=== PATIENT | female | born 1950 | race Two or more races ===

== ENCOUNTER 2021-03-31 12:15 | Inpatient (IN) | payer OTHER, MEDICAID ==
[~2021-03-31] VITALS: Ht 162.6 cm; Wt 73.6 kg
[2021-03-31] MEDS ORDERED: DexAMETHasone SOD PHOS 10MG/1ML VIAL INJ IV ONE (16:15)
[2021-03-31] MEDS ORDERED: AZITHROMYCIN 500MG/ 250ML 250 ML IV ONE (16:15)
[2021-03-31] MEDS ORDERED: cefTRIAXone 1GM/50ML D5W 50 ML IV ONE (16:15)
[2021-03-31] MEDS ORDERED: SODIUM CHLORIDE 0.9% 1,000 ML IV ONE (16:45)
[2021-03-31] MEDS ORDERED: DOCUSATE SOD 100 MG CAP PO PRN (16:45)
[2021-03-31] MEDS ORDERED: ACETAMINOPHEN 500 MG TAB PO PRN (16:45)
[2021-03-31] MEDS ORDERED: MORPHINE SULFATE INJECTION 2 MG/ML SYRG IV PRN ×2 (16:45)
[2021-03-31] MEDS ORDERED: SODIUM CHLORIDE 0.9% 1,000 ML IV SCH (16:45)
[2021-03-31] MEDS ORDERED: DEXTROSE (50%) 50ML SYRG IV PRN (16:45)
[2021-03-31] MEDS ORDERED: ACETAMINOPHEN 325 MG TAB PO PRN (16:45)
[2021-03-31] MEDS ORDERED: LORazepam 0.5 MG TAB PO PRN (16:45)
[2021-03-31] MEDS ORDERED: REMDESIVIR PER PHARMACY 0 ML IV SCH ×2 (16:45)
[2021-03-31] MEDS ORDERED: HYDROcodone-ACET 5/325MG TAB PO PRN (16:45)
[2021-03-31] MEDS ORDERED: ALBUTEROL SULF HFA 90MCG INH 200DOSE IN PRN (16:45)
[2021-03-31] MEDS ORDERED: ONDANSETRON HCL 4 MG/2 ML VIAL IV PRN (16:45)
[2021-03-31] MEDS ORDERED: NITROGLYCERIN 0.4 MG SL TAB SL PRN (16:45)
[2021-03-31] MEDS ORDERED: hydrALAZINE HCL 20 MG/ML VL IV PRN (17:15)
[2021-03-31] MEDS: ACCU-CHEK COMFORT CURVE STRIP VI SCH (18:00)
[2021-03-31] MEDS: ALBUTEROL SULF HFA 90MCG INH 200DOSE IN PRN (18:48)
[2021-03-31] MEDS: BUDESONIDE (INHALATION) 180 MCG IH IN SCH (18:48)
[2021-03-31] MEDS: HEPARIN SODIUM (PORCINE) 5000 UNITS/ML 1ML VIAL SC SCH (19:15)
[2021-03-31] MEDS: InsuLIN REG 1unit/0.01ml Soln (100units/ml) SC SCH (19:16)
[2021-03-31] MEDS: INSULIN LANTUS (GLARGINE) 1 /0.01ml (100units/ml) SC SCH (19:17)
[2021-03-31] MEDS: FAMOTIDINE 20 MG TAB PO SCH (22:45)
[2021-03-31 23:22] LABS: Basophils # (auto) 0 10 ^3/uL (0-0.2); Basophils % (auto) 0.1 % (0.0-2.0); Eosinophils # (auto) 0 10 ^3/uL (0-0.8); Hemoglobin 13.4 g/dL (12.2-16.2); Lymphocytes # (auto) 0.4 10 ^3/uL (0.4-5.4); Lymphocytes % (auto) 5.3 % (10.0-50.0); Mean Corpuscular Hemoglobin 29.1 pg (28.0-32.0); Mean Corpuscular Hgb Conc. 32.7 g/dL (32.0-36.0); Mean Corpuscular Volume 88.9 fL (80.0-100.0); Monocytes # (auto) 0.2 10 ^3/uL (0-1.3); Monocytes % (auto) 3.2 % (0.0-12.0); Neutrophils # (auto) 6.7 10 ^3/uL (1.6-8.6); Neutrophils % (auto) 91.4 % (37.0-80.0); Red Blood Cells 4.61 10^6/uL (4.0-5.20); Red Cell Distribution Width 13.7 % (11.8-14.3); White Blood Cell 7.3 10^3/uL (4.4-10.8)
[2021-03-31 23:35] LABS: Urine Bacteria NONE SEEN /hpf (None Seen); Urine Blood Negative /uL (Negative); Urine Specific Gravity 1.029 (1.001-1.035); Urine WBC <1 /hpf (0 - 5)
[2021-03-31 23:44] LABS: Potassium 3.6 mmol/L (3.5-5.1)
[2021-03-31 23:51] LABS: Thyroid Stimulating Hormone 0.62 uIU/mL (0.358-3.74)
[2021-04-01 00:06] LABS: Albumin 2.3 g/dL (3.4-5.0); BUN/Creatinine Ratio 32.5; Bilirubin, Total 0.2 mg/dL (0.2-1.0); Calcium 8.5 mg/dL (8.5-10.1); Total Protein 6.5 g/dL (6.4-8.2)
[2021-04-01] MEDS: ACCU-CHEK COMFORT CURVE STRIP VI SCH ×4 (00:16→18:00)
[2021-04-01] MEDS: InsuLIN REG 1unit/0.01ml Soln (100units/ml) SC SCH ×4 (00:23→19:25)
[2021-04-01] MEDS: HEPARIN SODIUM (PORCINE) 5000 UNITS/ML 1ML VIAL SC SCH (05:38)
[2021-04-01 07:12] LABS: Basophils # (auto) 0 10 ^3/uL (0-0.2); Basophils % (auto) 0.1 % (0.0-2.0); Eosinophils # (auto) 0 10 ^3/uL (0-0.8); Hematocrit 41.2 % (36.0-46.0); Hemoglobin 13.4 g/dL (12.2-16.2); Lymphocytes # (auto) 0.6 10 ^3/uL (0.4-5.4); Lymphocytes % (auto) 9.7 % (10.0-50.0); Mean Corpuscular Hemoglobin 28.7 pg (28.0-32.0); Mean Corpuscular Hgb Conc. 32.4 g/dL (32.0-36.0); Mean Corpuscular Volume 88.5 fL (80.0-100.0); Monocytes # (auto) 0.3 10 ^3/uL (0-1.3); Monocytes % (auto) 5.4 % (0.0-12.0); Neutrophils # (auto) 4.9 10 ^3/uL (1.6-8.6); Neutrophils % (auto) 84.8 % (37.0-80.0); Nucleated Red Blood Cells % 0.1 %; Red Blood Cells 4.66 10^6/uL (4.0-5.20); Red Cell Distribution Width 13.9 % (11.8-14.3); White Blood Cell 5.8 10^3/uL (4.4-10.8)
[2021-04-01 07:16] LABS: Potassium 3.9 mmol/L (3.5-5.1)
[2021-04-01 07:22] LABS: Albumin 2.3 g/dL (3.4-5.0); BUN/Creatinine Ratio 37.3; Bilirubin, Total 0.2 mg/dL (0.2-1.0); Calcium 8.3 mg/dL (8.5-10.1); Total Protein 5.7 g/dL (6.4-8.2)
[2021-04-01] MEDS: INSULIN LANTUS (GLARGINE) 1 /0.01ml (100units/ml) SC SCH ×2 (08:02→22:44)
[2021-04-01] MEDS: amLODIPine BESYLATE 5 MG TAB PO SCH (10:00)
[2021-04-01] MEDS: ASCORBIC ACID 1,000 MG TAB PO SCH (10:00)
[2021-04-01] MEDS: FAMOTIDINE 20 MG TAB PO SCH ×2 (10:00→23:09)
[2021-04-01] MEDS: ZINC SULFATE 220mg CAP or TAB PO SCH (10:00)
[2021-04-01] MEDS: CHOLECALCIFEROL (VITD3) 2,000 UNIT CAP/TAB PO SCH (10:00)
[2021-04-01] MEDS: DexAMETHasone SOD PHOS 10MG/1ML VIAL INJ IV SCH (10:00)
[2021-04-01] MEDS ORDERED: REMDESIVIR 200 MG in NS 210ml LOADING DOSE ADULT IV ONE (10:30)
[2021-04-01] MEDS ORDERED: NITROGLYCERIN 0.4 MG SL TAB SL PRN (10:45)
[2021-04-01] MEDS: ASPirin 81 mg TAB PO SCH (10:45)
[2021-04-01] MEDS ORDERED: MORPHINE SULFATE INJECTION 2 MG/ML SYRG IV PRN (10:45)
[2021-04-01] MEDS ORDERED: HEPARIN SODIUM (PORCINE) 5000 UNITS/ML 1ML VIAL IV ONE (12:30)
[2021-04-01 13:40] LABS: Basophils # (auto) 0 10 ^3/uL (0-0.2); Basophils % (auto) 0.1 % (0.0-2.0); Eosinophils # (auto) 0 10 ^3/uL (0-0.8); Hematocrit 40.5 % (36.0-46.0); Hemoglobin 13.3 g/dL (12.2-16.2); Lymphocytes # (auto) 0.6 10 ^3/uL (0.4-5.4); Mean Corpuscular Hemoglobin 29.1 pg (28.0-32.0); Mean Corpuscular Hgb Conc. 32.8 g/dL (32.0-36.0); Mean Corpuscular Volume 88.7 fL (80.0-100.0); Monocytes # (auto) 0.5 10 ^3/uL (0-1.3); Monocytes % (auto) 3.8 % (0.0-12.0); Neutrophils # (auto) 11.2 10 ^3/uL (1.6-8.6); Neutrophils % (auto) 91.1 % (37.0-80.0); Red Blood Cells 4.57 10^6/uL (4.0-5.20); White Blood Cell 12.3 10^3/uL (4.4-10.8)
[2021-04-01 13:47] LABS: INR 0.96 (0.9-1.15); Partial Thromboplastin Time 28.2 sec (23.6-33.0)
[2021-04-01] MEDS: HEPARIN DRIP/D5W 100UNITS/ML 250 ML IV SCH (14:21)
[2021-04-01] MEDS: BUDESONIDE (INHALATION) 180 MCG IH IN SCH (15:49)
[2021-04-01] MEDS: ALBUTEROL SULF HFA 90MCG INH 200DOSE IN PRN (15:50)
[2021-04-01] MEDS ORDERED: ROCURONIUM 10MG/ML 10ML VIAL IV ONE (18:00)
[2021-04-01] MEDS ORDERED: ETOMIDATE (2MG/ML) 20ML VIAL IV ONE (18:00)
[2021-04-01] MEDS: MIDAZOLAM DRIP 50 mg/50mL 50 ML IV SCH (18:19)
[2021-04-01] MEDS: fentaNYL Drip 2500mCg/250mlNS 250 ML IV SCH (18:20)
[2021-04-01 18:30] VITALS: BP 145/73
[2021-04-01 20:54] LABS: INR 1.02 (0.9-1.15)
[2021-04-01 21:05] LABS: Partial Thromboplastin Time 119.6 sec (23.6-33.0)
[2021-04-01] MEDS ORDERED: ENOXAPARIN SOD 80 MG/0.8ML SYRINGE SC SCH (22:00)
[2021-04-01] MEDS: cefTRIAXone 1GM/50ML D5W 50 ML IV SCH ×2 (22:37→23:21)
[2021-04-01] MEDS: AZITHROMYCIN 500MG/ 250ML 250 ML IV SCH (23:00)
[2021-04-01] MEDS: CARVEDILOL 3.125 MG TAB PO SCH (23:04)
[2021-04-01] MEDS: ATORVASTATIN 20 MG TAB PO SCH (23:09)
[2021-04-02] MEDS: ACCU-CHEK COMFORT CURVE STRIP VI SCH ×4 (01:34→18:59)
[2021-04-02] MEDS: InsuLIN REG 1unit/0.01ml Soln (100units/ml) SC SCH ×4 (01:40→19:00)
[2021-04-02 02:40] VITALS: BP 126/54
[2021-04-02 06:06] LABS: INR 1.04 (0.9-1.15); Partial Thromboplastin Time 55.5 sec (23.6-33.0)
[2021-04-02 07:29] VITALS: BP 129/56
[2021-04-02 07:40] LABS: Alanine Aminotransferase 25 U/L (13-56)
[2021-04-02 07:45] LABS: Anion Gap 96 (5-15); Carbon Dioxide 28 mmol/L (21-32); Chloride 17 mmol/L (98-107); Potassium 3.7 mmol/L (3.5-5.1); Sodium 141 mmol/L (136-145)
[2021-04-02 07:46] LABS: Albumin 1.9 g/dL (3.4-5.0); Alkaline Phosphatase 108 U/L (45-117); Aspartate Aminotransferase 63 U/L (15-37); Bilirubin, Total 0.3 mg/dL (0.2-1.0); Blood Urea Nitrogen 29 mg/dL (7-18); Calcium 7.9 mg/dL (8.5-10.1); GFR African American 133 mL/min; GFR Non-African American 110 mL/min; Glucose 260 mg/dL (74-106); Total Protein 5.9 g/dL (6.4-8.2)
[2021-04-02] MEDS: CARVEDILOL 3.125 MG TAB PO SCH ×2 (10:43→22:00)
[2021-04-02] MEDS: amLODIPine BESYLATE 5 MG TAB PO SCH (10:44)
[2021-04-02] MEDS: ZINC SULFATE 220mg CAP or TAB PO SCH (10:55)
[2021-04-02] MEDS: ASCORBIC ACID 1,000 MG TAB PO SCH (10:55)
[2021-04-02] MEDS: CHOLECALCIFEROL (VITD3) 2,000 UNIT CAP/TAB PO SCH (10:55)
[2021-04-02] MEDS: ASPirin 81 mg TAB PO SCH (10:55)
[2021-04-02] MEDS: DexAMETHasone SOD PHOS 10MG/1ML VIAL INJ IV SCH (10:55)
[2021-04-02] MEDS: FAMOTIDINE 20 MG TAB PO SCH ×2 (10:55→22:30)
[2021-04-02] MEDS: INSULIN LANTUS (GLARGINE) 1 /0.01ml (100units/ml) SC SCH ×2 (10:57→22:30)
[2021-04-02 11:05] VITALS: BP 130/56
[2021-04-02 13:38] LABS: INR 1.05 (0.9-1.15); Partial Thromboplastin Time 56.4 sec (23.6-33.0)
[2021-04-02 13:41] VITALS: BP 138/56
[2021-04-02] MEDS: HEPARIN DRIP/D5W 100UNITS/ML 250 ML IV SCH (13:53)
[2021-04-02] MEDS: REMDESIVIR 100mg 100 MG in SODIUM CHL 0.9% 230 ML IV SCH (16:15)
[2021-04-02 18:11] VITALS: BP 141/57
[2021-04-02] MEDS: fentaNYL Drip 2500mCg/250mlNS 250 ML IV SCH (18:50)
[2021-04-02] MEDS: MIDAZOLAM DRIP 50 mg/50mL 50 ML IV SCH (18:52)
[2021-04-02 19:45] LABS: INR 1.1 (0.9-1.15); Partial Thromboplastin Time 66.9 sec (23.6-33.0)
[2021-04-02 22:22] VITALS: BP 142/59
[2021-04-02] MEDS: ATORVASTATIN 20 MG TAB PO SCH (22:30)
[2021-04-02] MEDS: AZITHROMYCIN 500MG/ 250ML 250 ML IV SCH (22:30)
[2021-04-03] MEDS ORDERED: InsuLIN REG 1unit/0.01ml Soln (100units/ml) ONE (01:31)
[2021-04-03 02:35] VITALS: BP 139/59
[2021-04-03] MEDS: ACCU-CHEK COMFORT CURVE STRIP VI SCH ×4 (05:50→17:43)
[2021-04-03] MEDS: InsuLIN REG 1unit/0.01ml Soln (100units/ml) SC SCH ×4 (05:56→17:43)
[2021-04-03 06:30] VITALS: BP 135/60
[2021-04-03] MEDS: INSULIN LANTUS (GLARGINE) 1 /0.01ml (100units/ml) SC SCH ×2 (07:12→22:42)
[2021-04-03 08:19] LABS: Basophils # (auto) 0 10 ^3/uL (0-0.2); Basophils % (auto) 0.5 % (0.0-2.0); Eosinophils # (auto) 0 10 ^3/uL (0-0.8); Eosinophils % (auto) 0.2 % (0.0-7.0); Hematocrit 40.2 % (36.0-46.0); Hemoglobin 13.5 g/dL (12.2-16.2); Lymphocytes # (auto) 0.6 10 ^3/uL (0.4-5.4); Lymphocytes % (auto) 5.5 % (10.0-50.0); Mean Corpuscular Hemoglobin 29.3 pg (28.0-32.0); Mean Corpuscular Hgb Conc. 33.5 g/dL (32.0-36.0); Mean Corpuscular Volume 87.6 fL (80.0-100.0); Monocytes # (auto) 0.5 10 ^3/uL (0-1.3); Monocytes % (auto) 4.4 % (0.0-12.0); Neutrophils # (auto) 9.1 10 ^3/uL (1.6-8.6); Neutrophils % (auto) 89.4 % (37.0-80.0); Nucleated Red Blood Cells % 0.1 %; Red Blood Cells 4.59 10^6/uL (4.0-5.20); White Blood Cell 10.2 10^3/uL (4.4-10.8)
[2021-04-03 08:45] LABS: Albumin 1.9 g/dL (3.4-5.0); Calcium 7.9 mg/dL (8.5-10.1); Magnesium 3.1 mg/dL (1.6-2.6); Potassium 3.5 mmol/L (3.5-5.1)
[2021-04-03 08:49] LABS: BUN/Creatinine Ratio 44.7; Bilirubin, Total 0.3 mg/dL (0.2-1.0); Total Protein 5.6 g/dL (6.4-8.2)
[2021-04-03] MEDS: CARVEDILOL 3.125 MG TAB PO SCH ×2 (10:00→22:00)
[2021-04-03] MEDS: ASPirin 81 mg TAB PO SCH (10:33)
[2021-04-03] MEDS: ZINC SULFATE 220mg CAP or TAB PO SCH (10:33)
[2021-04-03] MEDS: DexAMETHasone SOD PHOS 10MG/1ML VIAL INJ IV SCH (10:33)
[2021-04-03] MEDS: ASCORBIC ACID 1,000 MG TAB PO SCH (10:34)
[2021-04-03] MEDS: CLOPIDOGREL BISULFATE 75 MG TAB PO SCH (10:34)
[2021-04-03] MEDS: amLODIPine BESYLATE 5 MG TAB PO SCH (10:34)
[2021-04-03] MEDS: FAMOTIDINE 20 MG TAB PO SCH ×2 (10:34→22:45)
[2021-04-03] MEDS: CHOLECALCIFEROL (VITD3) 2,000 UNIT CAP/TAB PO SCH (10:34)
[2021-04-03 10:35] VITALS: BP 141/59
[2021-04-03 10:58] LABS: INR 1.16 (0.9-1.15); Partial Thromboplastin Time 69.9 sec (23.6-33.0)
[2021-04-03] MEDS: HEPARIN DRIP/D5W 100UNITS/ML 250 ML IV SCH (12:46)
[2021-04-03 13:00] VITALS: BP 141/59
[2021-04-03] MEDS: REMDESIVIR 100mg 100 MG in SODIUM CHL 0.9% 230 ML IV SCH (15:11)
[2021-04-03 19:06] VITALS: BP 135/60
[2021-04-03] MEDS: MIDAZOLAM DRIP 50 mg/50mL 50 ML IV SCH (19:13)
[2021-04-03] MEDS: fentaNYL Drip 2500mCg/250mlNS 250 ML IV SCH (19:20)
[2021-04-03 21:07] LABS: INR 1.21 (0.9-1.15)
[2021-04-03] MEDS: cefTRIAXone 1GM/50ML D5W 50 ML IV SCH (21:15)
[2021-04-03 21:23] LABS: Partial Thromboplastin Time 88.7 sec (23.6-33.0)
[2021-04-03 21:27] VITALS: BP 143/59
[2021-04-03] MEDS: AZITHROMYCIN 500MG/ 250ML 250 ML IV SCH (22:30)
[2021-04-03] MEDS: ATORVASTATIN 20 MG TAB PO SCH (22:47)
[2021-04-04] VITALS (11 sets, daily range): BP systolic 119–149; BP diastolic 53–65
[2021-04-04] MEDS: ACCU-CHEK COMFORT CURVE STRIP VI SCH ×5 (00:22→23:57)
[2021-04-04] MEDS: InsuLIN REG 1unit/0.01ml Soln (100units/ml) SC SCH ×4 (00:35→18:03)
[2021-04-04] MEDS: INSULIN LANTUS (GLARGINE) 1 /0.01ml (100units/ml) SC SCH ×2 (07:29→22:21)
[2021-04-04 09:18] LABS: INR 1.17 (0.9-1.15); Partial Thromboplastin Time 43.9 sec (23.6-33.0)
[2021-04-04 09:31] LABS: Basophils # (auto) 0.1 10 ^3/uL (0-0.2); Basophils % (auto) 0.8 % (0.0-2.0); Eosinophils # (auto) 0.1 10 ^3/uL (0-0.8); Eosinophils % (auto) 0.4 % (0.0-7.0); Hematocrit 43.6 % (36.0-46.0); Hemoglobin 14.6 g/dL (12.2-16.2); Lymphocytes # (auto) 0.7 10 ^3/uL (0.4-5.4); Lymphocytes % (auto) 5.2 % (10.0-50.0); Mean Corpuscular Hemoglobin 29.4 pg (28.0-32.0); Mean Corpuscular Hgb Conc. 33.4 g/dL (32.0-36.0); Mean Corpuscular Volume 87.9 fL (80.0-100.0); Monocytes # (auto) 0.8 10 ^3/uL (0-1.3); Monocytes % (auto) 6.2 % (0.0-12.0); Neutrophils # (auto) 11.8 10 ^3/uL (1.6-8.6); Neutrophils % (auto) 87.4 % (37.0-80.0); Nucleated Red Blood Cells % 0.1 %; Red Blood Cells 4.96 10^6/uL (4.0-5.20); Red Cell Distribution Width 14.1 % (11.8-14.3); White Blood Cell 13.5 10^3/uL (4.4-10.8)
[2021-04-04 09:50] LABS: Calcium 7.7 mg/dL (8.5-10.1); Potassium 4.4 mmol/L (3.5-5.1)
[2021-04-04] MEDS: DexAMETHasone SOD PHOS 10MG/1ML VIAL INJ IV SCH (09:57)
[2021-04-04] MEDS: CHOLECALCIFEROL (VITD3) 2,000 UNIT CAP/TAB PO SCH (09:58)
[2021-04-04] MEDS: CLOPIDOGREL BISULFATE 75 MG TAB PO SCH (09:58)
[2021-04-04] MEDS: ASCORBIC ACID 1,000 MG TAB PO SCH (09:58)
[2021-04-04] MEDS: FAMOTIDINE 20 MG TAB PO SCH ×2 (09:58→22:05)
[2021-04-04] MEDS: amLODIPine BESYLATE 5 MG TAB PO SCH (09:58)
[2021-04-04] MEDS: ZINC SULFATE 220mg CAP or TAB PO SCH (09:58)
[2021-04-04] MEDS: ASPirin 81 mg TAB PO SCH (09:58)
[2021-04-04 09:59] LABS: BUN/Creatinine Ratio 38.6; Bilirubin, Total 0.4 mg/dL (0.2-1.0); CRP High Sensitivity 2.44 mg/dL (< 0.3); Total Protein 5.4 g/dL (6.4-8.2)
[2021-04-04] MEDS: CARVEDILOL 3.125 MG TAB PO SCH ×2 (10:00→22:08)
[2021-04-04] MEDS: HEPARIN DRIP/D5W 100UNITS/ML 250 ML IV SCH (12:40)
[2021-04-04] MEDS: REMDESIVIR 100mg 100 MG in SODIUM CHL 0.9% 230 ML IV SCH (14:47)
[2021-04-04 15:02] LABS: INR 1.21 (0.9-1.15); Partial Thromboplastin Time 49.8 sec (23.6-33.0)
[2021-04-04] MEDS: fentaNYL Drip 2500mCg/250mlNS 250 ML IV SCH (18:06)
[2021-04-04] MEDS: MIDAZOLAM DRIP 50 mg/50mL 50 ML IV SCH (18:07)
[2021-04-04 21:03] LABS: INR 1.23 (0.9-1.15); Partial Thromboplastin Time 40.8 sec (23.6-33.0)
[2021-04-04] MEDS: cefTRIAXone 1GM/50ML D5W 50 ML IV SCH (21:29)
[2021-04-04] MEDS: AZITHROMYCIN 500MG/ 250ML 250 ML IV SCH (22:09)
[2021-04-04] MEDS ORDERED: HEPARIN DRIP/D5W 100UNITS/ML 250 ML IV SCH (22:15)
[2021-04-04] MEDS: ATORVASTATIN 20 MG TAB PO SCH (22:23)
[2021-04-05] VITALS (9 sets, daily range): BP systolic 109–130; BP diastolic 44–62
[2021-04-05] MEDS: InsuLIN REG 1unit/0.01ml Soln (100units/ml) SC SCH ×4 (00:01→18:01)
[2021-04-05] MEDS: ACCU-CHEK COMFORT CURVE STRIP VI SCH ×3 (05:49→18:00)
[2021-04-05] MEDS: INSULIN LANTUS (GLARGINE) 1 /0.01ml (100units/ml) SC SCH ×2 (06:57→22:00)
[2021-04-05 09:11] LABS: INR 1.38 (0.9-1.15)
[2021-04-05 09:25] LABS: Partial Thromboplastin Time 109.6 sec (23.6-33.0)
[2021-04-05] MEDS: DexAMETHasone SOD PHOS 10MG/1ML VIAL INJ IV SCH (10:00)
[2021-04-05] MEDS: amLODIPine BESYLATE 5 MG TAB PO SCH (10:00)
[2021-04-05] MEDS: CLOPIDOGREL BISULFATE 75 MG TAB PO SCH (10:00)
[2021-04-05] MEDS: CARVEDILOL 3.125 MG TAB PO SCH ×2 (10:00→22:00)
[2021-04-05] MEDS: ZINC SULFATE 220mg CAP or TAB PO SCH (10:52)
[2021-04-05] MEDS: ASPirin 81 mg TAB PO SCH (10:52)
[2021-04-05] MEDS: ASCORBIC ACID 1,000 MG TAB PO SCH (10:53)
[2021-04-05] MEDS: CHOLECALCIFEROL (VITD3) 2,000 UNIT CAP/TAB PO SCH (10:53)
[2021-04-05] MEDS: FAMOTIDINE 20 MG TAB PO SCH ×2 (10:53→22:00)
[2021-04-05 12:05] LABS: INR 1.25 (0.9-1.15); Partial Thromboplastin Time 53.7 sec (23.6-33.0)
[2021-04-05 12:23] LABS: Potassium 3.6 mmol/L (3.5-5.1)
[2021-04-05 12:32] LABS: Albumin 1.7 g/dL (3.4-5.0); BUN/Creatinine Ratio 35.6; Bilirubin, Total 0.2 mg/dL (0.2-1.0); Calcium 7.1 mg/dL (8.5-10.1)
[2021-04-05] MEDS: REMDESIVIR 100mg 100 MG in SODIUM CHL 0.9% 230 ML IV SCH (15:06)
[2021-04-05] MEDS: fentaNYL Drip 2500mCg/250mlNS 250 ML IV SCH (17:46)
[2021-04-05] MEDS: MIDAZOLAM DRIP 50 mg/50mL 50 ML IV SCH (17:47)
[2021-04-05] MEDS: cefTRIAXone 1GM/50ML D5W 50 ML IV SCH (21:16)
[2021-04-05] MEDS: ATORVASTATIN 20 MG TAB PO SCH (22:00)
[2021-04-05] MEDS: AZITHROMYCIN 500MG/ 250ML 250 ML IV SCH (22:00)
[2021-04-05] MEDS ORDERED: FAMOTIDINE 20 MG TAB ONE (23:54)
[2021-04-05] MEDS ORDERED: AZITHROMYCIN 500MG/ 250ML 250 ML IV ONE (23:54)
[2021-04-05] MEDS ORDERED: ATORVASTATIN 20 MG TAB ONE (23:54)
[2021-04-05] MEDS ORDERED: INSULIN LANTUS (GLARGINE) 1 /0.01ml (100units/ml) SC ONE (23:56)
[2021-04-06] VITALS (8 sets, daily range): BP systolic 123–140; BP diastolic 51–59
[2021-04-06] MEDS: ACCU-CHEK COMFORT CURVE STRIP VI SCH ×4 (00:15→18:19)
[2021-04-06 01:41] LABS: INR 1.27 (0.9-1.15)
[2021-04-06 01:51] LABS: Partial Thromboplastin Time > 139.0 sec (23.6-33.0)
[2021-04-06] MEDS ORDERED: MIDAZOLAM DRIP 50 mg/50mL 50 ML IV ONE ×3 (03:04→13:45)
[2021-04-06] MEDS ORDERED: INSULIN LANTUS (GLARGINE) 1 /0.01ml (100units/ml) SC ONE (06:35)
[2021-04-06] MEDS: InsuLIN REG 1unit/0.01ml Soln (100units/ml) SC SCH ×4 (06:39→18:18)
[2021-04-06] MEDS: INSULIN LANTUS (GLARGINE) 1 /0.01ml (100units/ml) SC SCH ×2 (06:40→22:16)
[2021-04-06] MEDS: MIDAZOLAM DRIP 50 mg/50mL 50 ML IV SCH ×3 (08:20→18:29)
[2021-04-06] MEDS ORDERED: FUROSEMIDE 40 MG/4 ML VIAL IV ONE (10:00)
[2021-04-06] MEDS ORDERED: ENOXAPARIN SOD 40 MG/0.4 ML SYRINGE SC SCH (10:00)
[2021-04-06 10:50] LABS: INR 1.21 (0.9-1.15); Partial Thromboplastin Time 25.9 sec (23.6-33.0)
[2021-04-06] MEDS ORDERED: MIDAZOLAM DRIP 50 mg/50mL 50 ML IV SCH (11:30)
[2021-04-06] MEDS ORDERED: DOCUSATE SOD 100 MG CAP PO PRN (11:45)
[2021-04-06] MEDS ORDERED: ACETAMINOPHEN 325 MG TAB PO PRN (11:45)
[2021-04-06] MEDS ORDERED: hydrALAZINE HCL 20 MG/ML VL IV PRN (11:45)
[2021-04-06] MEDS ORDERED: NITROGLYCERIN 0.4 MG SL TAB SL PRN (11:45)
[2021-04-06] MEDS ORDERED: MORPHINE SULFATE INJECTION 2 MG/ML SYRG IV PRN ×3 (11:45→13:15)
[2021-04-06] MEDS ORDERED: ONDANSETRON HCL 4 MG/2 ML VIAL IV PRN (11:45)
[2021-04-06] MEDS ORDERED: HYDROcodone-ACET 5/325MG TAB PO PRN (11:45)
[2021-04-06] MEDS ORDERED: DEXTROSE (50%) 50ML SYRG IV PRN (11:45)
[2021-04-06] MEDS ORDERED: LORazepam 0.5 MG TAB PO PRN (11:45)
[2021-04-06] MEDS: AZITHROMYCIN 500MG/ 250ML 250 ML IV SCH (13:50)
[2021-04-06] MEDS: ASPirin 81 mg TAB PO SCH (13:51)
[2021-04-06] MEDS: amLODIPine BESYLATE 5 MG TAB PO SCH (13:51)
[2021-04-06] MEDS: cefTRIAXone 1GM/50ML D5W 50 ML IV SCH (13:51)
[2021-04-06] MEDS: CARVEDILOL 3.125 MG TAB PO SCH ×2 (13:52→22:44)
[2021-04-06] MEDS: ASCORBIC ACID 1,000 MG TAB PO SCH (13:52)
[2021-04-06] MEDS: DexAMETHasone SOD PHOS 10MG/1ML VIAL INJ IV SCH (13:52)
[2021-04-06] MEDS: CLOPIDOGREL BISULFATE 75 MG TAB PO SCH (13:53)
[2021-04-06] MEDS: ZINC SULFATE 220mg CAP or TAB PO SCH (13:53)
[2021-04-06] MEDS: CHOLECALCIFEROL (VITD3) 2,000 UNIT CAP/TAB PO SCH (13:53)
[2021-04-06] MEDS: FAMOTIDINE 20 MG TAB PO SCH ×2 (13:53→22:44)
[2021-04-06] MEDS: ENOXAPARIN SOD 40 MG/0.4 ML SYRINGE SC SCH (13:53)
[2021-04-06] MEDS ORDERED: cefTRIAXone SOD 1,000 MG VL ONE (14:46)
[2021-04-06] MEDS ORDERED: cefTRIAXone SOD 1,000 MG VL IM ONE (15:00)
[2021-04-06 15:32] LABS: INR 1.54 (0.9-1.15); Partial Thromboplastin Time 45.2 sec (23.6-33.0)
[2021-04-06] MEDS ORDERED: ONDANSETRON HCL 4 MG/2 ML VIAL ONE (16:17)
[2021-04-06] MEDS ORDERED: cefTRIAXone 1GM/50ML D5W 50 ML IV SCH (21:00)
[2021-04-06] MEDS ORDERED: AZITHROMYCIN 500MG/ 250ML 250 ML IV SCH (22:00)
[2021-04-06] MEDS: fentaNYL Drip 2500mCg/250mlNS 250 ML IV SCH (22:01)
[2021-04-06 22:29] LABS: INR 1.17 (0.9-1.15); Partial Thromboplastin Time 29.1 sec (23.6-33.0)
[2021-04-06] MEDS: ATORVASTATIN 20 MG TAB PO SCH (22:44)
[2021-04-07] MEDS: MIDAZOLAM DRIP 50 mg/50mL 50 ML IV SCH ×2 (00:07→03:50)
[2021-04-07] MEDS: ACCU-CHEK COMFORT CURVE STRIP VI SCH ×4 (00:16→18:46)
[2021-04-07] MEDS: InsuLIN REG 1unit/0.01ml Soln (100units/ml) SC SCH ×4 (00:25→18:49)
[2021-04-07 02:15] VITALS: BP 127/55
[2021-04-07 06:00] VITALS: BP 131/63
[2021-04-07 06:57] LABS: Basophils # (auto) 0.1 10 ^3/uL (0-0.2); Basophils % (auto) 0.4 % (0.0-2.0); Eosinophils # (auto) 0 10 ^3/uL (0-0.8); Hematocrit 37.4 % (36.0-46.0); Hemoglobin 12.6 g/dL (12.2-16.2); Lymphocytes # (auto) 0.3 10 ^3/uL (0.4-5.4); Lymphocytes % (auto) 2.4 % (10.0-50.0); Mean Corpuscular Hemoglobin 30.1 pg (28.0-32.0); Mean Corpuscular Hgb Conc. 33.8 g/dL (32.0-36.0); Mean Corpuscular Volume 89.2 fL (80.0-100.0); Monocytes # (auto) 0.5 10 ^3/uL (0-1.3); Monocytes % (auto) 3.6 % (0.0-12.0); Neutrophils # (auto) 12.7 10 ^3/uL (1.6-8.6); Neutrophils % (auto) 93.6 % (37.0-80.0); Nucleated Red Blood Cells % 0.2 %; Red Blood Cells 4.19 10^6/uL (4.0-5.20); Red Cell Distribution Width 13.7 % (11.8-14.3); White Blood Cell 13.6 10^3/uL (4.4-10.8)
[2021-04-07 07:04] LABS: Calcium 7.5 mg/dL (8.5-10.1); Potassium 3.9 mmol/L (3.5-5.1)
[2021-04-07] MEDS: INSULIN LANTUS (GLARGINE) 1 /0.01ml (100units/ml) SC SCH ×2 (07:07→22:19)
[2021-04-07 07:13] LABS: BUN/Creatinine Ratio 53.2; CRP High Sensitivity 1.27 mg/dL (< 0.3)
[2021-04-07] MEDS: cefTRIAXone 1GM/50ML D5W 50 ML IV SCH (09:56)
[2021-04-07] MEDS: amLODIPine BESYLATE 5 MG TAB PO SCH (10:00)
[2021-04-07 10:47] VITALS: BP 129/54
[2021-04-07] MEDS: DexAMETHasone SOD PHOS 10MG/1ML VIAL INJ IV SCH (11:00)
[2021-04-07] MEDS: AZITHROMYCIN 500MG/ 250ML 250 ML IV SCH (11:00)
[2021-04-07] MEDS: CHOLECALCIFEROL (VITD3) 2,000 UNIT CAP/TAB PO SCH (11:00)
[2021-04-07] MEDS: ENOXAPARIN SOD 40 MG/0.4 ML SYRINGE SC SCH (11:00)
[2021-04-07] MEDS: FAMOTIDINE 20 MG TAB PO SCH ×2 (11:00→22:19)
[2021-04-07] MEDS: CLOPIDOGREL BISULFATE 75 MG TAB PO SCH (11:00)
[2021-04-07] MEDS: ASCORBIC ACID 1,000 MG TAB PO SCH (11:00)
[2021-04-07] MEDS: ZINC SULFATE 220mg CAP or TAB PO SCH (11:00)
[2021-04-07] MEDS: CARVEDILOL 3.125 MG TAB PO SCH ×2 (11:00→22:00)
[2021-04-07] MEDS: ASPirin 81 mg TAB PO SCH (11:00)
[2021-04-07] MEDS: fentaNYL Drip 2500mCg/250mlNS 250 ML IV SCH (12:02)
[2021-04-07 14:05] VITALS: BP 140/58
[2021-04-07 18:25] VITALS: BP 128/49
[2021-04-07 21:50] VITALS: BP 123/47
[2021-04-07] MEDS: METOCLOPRAMIDE HCL 5MG/ml INJ 2ml VIAL IV SCH (22:18)
[2021-04-07] MEDS: ATORVASTATIN 20 MG TAB PO SCH (22:19)
[2021-04-08] VITALS (11 sets, daily range): BP systolic 118–161; BP diastolic 47–60
[2021-04-08] MEDS: ACCU-CHEK COMFORT CURVE STRIP VI SCH ×4 (00:13→18:28)
[2021-04-08] MEDS: InsuLIN REG 1unit/0.01ml Soln (100units/ml) SC SCH ×4 (00:14→18:18)
[2021-04-08] MEDS: METOCLOPRAMIDE HCL 5MG/ml INJ 2ml VIAL IV SCH ×3 (06:01→21:44)
[2021-04-08] MEDS: INSULIN LANTUS (GLARGINE) 1 /0.01ml (100units/ml) SC SCH ×2 (06:45→21:56)
[2021-04-08] MEDS: cefTRIAXone 1GM/50ML D5W 50 ML IV SCH (09:06)
[2021-04-08 10:17] LABS: BUN/Creatinine Ratio 54.3; Bilirubin, Total 0.2 mg/dL (0.2-1.0); Calcium 7.6 mg/dL (8.5-10.1); Potassium 4.5 mmol/L (3.5-5.1)
[2021-04-08 10:18] LABS: Albumin 1.7 g/dL (3.4-5.0)
[2021-04-08] MEDS: AZITHROMYCIN 500MG/ 250ML 250 ML IV SCH (11:32)
[2021-04-08] MEDS: DexAMETHasone SOD PHOS 10MG/1ML VIAL INJ IV SCH (11:32)
[2021-04-08] MEDS: ASPirin 81 mg TAB PO SCH (11:33)
[2021-04-08] MEDS: ZINC SULFATE 220mg CAP or TAB PO SCH (11:34)
[2021-04-08] MEDS: CARVEDILOL 3.125 MG TAB PO SCH ×2 (11:34→21:47)
[2021-04-08] MEDS: amLODIPine BESYLATE 5 MG TAB PO SCH (11:34)
[2021-04-08] MEDS: CHOLECALCIFEROL (VITD3) 2,000 UNIT CAP/TAB PO SCH (11:35)
[2021-04-08] MEDS: ASCORBIC ACID 1,000 MG TAB PO SCH (11:35)
[2021-04-08] MEDS: CLOPIDOGREL BISULFATE 75 MG TAB PO SCH (11:35)
[2021-04-08] MEDS: ENOXAPARIN SOD 40 MG/0.4 ML SYRINGE SC SCH (11:35)
[2021-04-08] MEDS: FAMOTIDINE 20 MG TAB PO SCH ×2 (11:35→21:44)
[2021-04-08] MEDS: MIDAZOLAM DRIP 50 mg/50mL 50 ML IV SCH (11:45)
[2021-04-08] MEDS: fentaNYL Drip 2500mCg/250mlNS 250 ML IV SCH (20:28)
[2021-04-08] MEDS: ATORVASTATIN 20 MG TAB PO SCH (21:44)
[2021-04-09] VITALS (95 sets, daily range): BP systolic 116–165; BP diastolic 45–59
[2021-04-09] MEDS: ACCU-CHEK COMFORT CURVE STRIP VI SCH ×5 (00:28→22:52)
[2021-04-09] MEDS: MIDAZOLAM DRIP 50 mg/50mL 50 ML IV SCH (00:56)
[2021-04-09 05:48] LABS: Basophils # (auto) 0 10 ^3/uL (0-0.2); Basophils % (auto) 0.2 % (0.0-2.0); Eosinophils # (auto) 0 10 ^3/uL (0-0.8); Eosinophils % (auto) 0.3 % (0.0-7.0); Hematocrit 33.9 % (36.0-46.0); Hemoglobin 11.5 g/dL (12.2-16.2); Lymphocytes # (auto) 0.6 10 ^3/uL (0.4-5.4); Mean Corpuscular Hemoglobin 30.1 pg (28.0-32.0); Mean Corpuscular Hgb Conc. 33.9 g/dL (32.0-36.0); Mean Corpuscular Volume 88.6 fL (80.0-100.0); Monocytes # (auto) 0.6 10 ^3/uL (0-1.3); Monocytes % (auto) 4.1 % (0.0-12.0); Neutrophils % (auto) 91.4 % (37.0-80.0); Red Blood Cells 3.82 10^6/uL (4.0-5.20); White Blood Cell 14.2 10^3/uL (4.4-10.8)
[2021-04-09] MEDS: METOCLOPRAMIDE HCL 5MG/ml INJ 2ml VIAL IV SCH ×3 (05:57→22:00)
[2021-04-09] MEDS: InsuLIN REG 1unit/0.01ml Soln (100units/ml) SC SCH ×5 (05:57→22:53)
[2021-04-09] MEDS: INSULIN LANTUS (GLARGINE) 1 /0.01ml (100units/ml) SC SCH ×2 (06:11→22:00)
[2021-04-09 06:53] LABS: Albumin 1.5 g/dL (3.4-5.0); Calcium 7.1 mg/dL (8.5-10.1); Potassium 4.3 mmol/L (3.5-5.1)
[2021-04-09 07:02] LABS: BUN/Creatinine Ratio 65.5; Bilirubin, Total 0.2 mg/dL (0.2-1.0); CRP High Sensitivity 1.18 mg/dL (< 0.3); Total Protein 4.2 g/dL (6.4-8.2)
[2021-04-09] MEDS: cefTRIAXone 1GM/50ML D5W 50 ML IV SCH (09:00)
[2021-04-09] MEDS: ASPirin 81 mg TAB PO SCH (09:44)
[2021-04-09] MEDS: ZINC SULFATE 220mg CAP or TAB PO SCH (09:44)
[2021-04-09] MEDS: DexAMETHasone SOD PHOS 10MG/1ML VIAL INJ IV SCH (09:44)
[2021-04-09] MEDS: AZITHROMYCIN 500MG/ 250ML 250 ML IV SCH (09:44)
[2021-04-09] MEDS: CARVEDILOL 3.125 MG TAB PO SCH ×2 (09:44→22:00)
[2021-04-09] MEDS: amLODIPine BESYLATE 5 MG TAB PO SCH (09:45)
[2021-04-09] MEDS: ASCORBIC ACID 1,000 MG TAB PO SCH (09:45)
[2021-04-09] MEDS: ENOXAPARIN SOD 40 MG/0.4 ML SYRINGE SC SCH (09:45)
[2021-04-09] MEDS: FAMOTIDINE 20 MG TAB PO SCH ×2 (09:45→22:00)
[2021-04-09] MEDS: CLOPIDOGREL BISULFATE 75 MG TAB PO SCH (09:45)
[2021-04-09] MEDS: CHOLECALCIFEROL (VITD3) 2,000 UNIT CAP/TAB PO SCH (09:45)
[2021-04-09] MEDS: fentaNYL Drip 2500mCg/250mlNS 250 ML IV SCH (11:45)
[2021-04-09] MEDS: ATORVASTATIN 20 MG TAB PO SCH (22:00)
[2021-04-10] VITALS (95 sets, daily range): BP systolic 109–188; BP diastolic 45–75
[2021-04-10] MEDS: METOCLOPRAMIDE HCL 5MG/ml INJ 2ml VIAL IV SCH ×3 (06:00→21:39)
[2021-04-10] MEDS: InsuLIN REG 1unit/0.01ml Soln (100units/ml) SC SCH ×3 (06:00→17:15)
[2021-04-10] MEDS: ACCU-CHEK COMFORT CURVE STRIP VI SCH ×3 (06:00→17:15)
[2021-04-10] MEDS: INSULIN LANTUS (GLARGINE) 1 /0.01ml (100units/ml) SC SCH ×2 (06:56→21:42)
[2021-04-10] MEDS: CARVEDILOL 3.125 MG TAB PO SCH ×2 (08:00→21:41)
[2021-04-10] MEDS: cefTRIAXone 1GM/50ML D5W 50 ML IV SCH (08:55)
[2021-04-10] MEDS: AZITHROMYCIN 500MG/ 250ML 250 ML IV SCH (09:57)
[2021-04-10] MEDS: ASPirin 81 mg TAB PO SCH (09:58)
[2021-04-10] MEDS: CLOPIDOGREL BISULFATE 75 MG TAB PO SCH (09:58)
[2021-04-10] MEDS: ASCORBIC ACID 1,000 MG TAB PO SCH (09:58)
[2021-04-10] MEDS: FAMOTIDINE 20 MG TAB PO SCH ×2 (09:58→21:41)
[2021-04-10] MEDS: ZINC SULFATE 220mg CAP or TAB PO SCH (09:58)
[2021-04-10] MEDS: amLODIPine BESYLATE 5 MG TAB PO SCH (09:58)
[2021-04-10] MEDS: ENOXAPARIN SOD 40 MG/0.4 ML SYRINGE SC SCH (09:58)
[2021-04-10] MEDS: CHOLECALCIFEROL (VITD3) 2,000 UNIT CAP/TAB PO SCH (09:58)
[2021-04-10] MEDS: DexAMETHasone SOD PHOS 10MG/1ML VIAL INJ IV SCH (10:10)
[2021-04-10] MEDS: fentaNYL Drip 2500mCg/250mlNS 250 ML IV SCH (11:45)
[2021-04-10] MEDS: MIDAZOLAM DRIP 50 mg/50mL 50 ML IV SCH (11:45)
[2021-04-10] MEDS: ATORVASTATIN 20 MG TAB PO SCH (21:39)
[2021-04-11] VITALS (94 sets, daily range): BP systolic 106–171; BP diastolic 43–70
[2021-04-11] MEDS: ACCU-CHEK COMFORT CURVE STRIP VI SCH ×5 (00:02→23:54)
[2021-04-11] MEDS: InsuLIN REG 1unit/0.01ml Soln (100units/ml) SC SCH ×5 (00:05→23:57)
[2021-04-11] MEDS: fentaNYL Drip 2500mCg/250mlNS 250 ML IV SCH (03:12)
[2021-04-11 03:38] LABS: Basophils # (auto) 0 10 ^3/uL (0-0.2); Basophils % (auto) 0.2 % (0.0-2.0); Eosinophils # (auto) 0 10 ^3/uL (0-0.8); Hematocrit 33.8 % (36.0-46.0); Hemoglobin 11.3 g/dL (12.2-16.2); Lymphocytes # (auto) 0.4 10 ^3/uL (0.4-5.4); Mean Corpuscular Hemoglobin 29.5 pg (28.0-32.0); Mean Corpuscular Hgb Conc. 33.4 g/dL (32.0-36.0); Mean Corpuscular Volume 88.3 fL (80.0-100.0); Monocytes # (auto) 0.4 10 ^3/uL (0-1.3); Neutrophils # (auto) 19.8 10 ^3/uL (1.6-8.6); Neutrophils % (auto) 95.8 % (37.0-80.0); Red Blood Cells 3.83 10^6/uL (4.0-5.20); Red Cell Distribution Width 13.6 % (11.8-14.3); White Blood Cell 20.7 10^3/uL (4.4-10.8)
[2021-04-11 03:55] LABS: Albumin 1.4 g/dL (3.4-5.0); BUN/Creatinine Ratio 61.8; Calcium 7.3 mg/dL (8.5-10.1); Potassium 4.1 mmol/L (3.5-5.1)
[2021-04-11 03:59] LABS: Bilirubin, Total 0.3 mg/dL (0.2-1.0); Total Protein 4.3 g/dL (6.4-8.2)
[2021-04-11] MEDS: METOCLOPRAMIDE HCL 5MG/ml INJ 2ml VIAL IV SCH ×3 (05:54→21:52)
[2021-04-11] MEDS: FREE WATER GT SCH ×5 (05:54→23:54)
[2021-04-11] MEDS: INSULIN LANTUS (GLARGINE) 1 /0.01ml (100units/ml) SC SCH ×2 (05:56→21:53)
[2021-04-11] MEDS: cefTRIAXone 1GM/50ML D5W 50 ML IV SCH (09:06)
[2021-04-11] MEDS: AZITHROMYCIN 500MG/ 250ML 250 ML IV SCH (09:06)
[2021-04-11] MEDS: CLOPIDOGREL BISULFATE 75 MG TAB PO SCH (09:07)
[2021-04-11] MEDS: ENOXAPARIN SOD 40 MG/0.4 ML SYRINGE SC SCH (09:07)
[2021-04-11] MEDS: FAMOTIDINE 20 MG TAB PO SCH ×2 (09:07→21:52)
[2021-04-11] MEDS: CARVEDILOL 3.125 MG TAB PO SCH ×2 (09:09→21:51)
[2021-04-11] MEDS: CHOLECALCIFEROL (VITD3) 2,000 UNIT CAP/TAB PO SCH (09:09)
[2021-04-11] MEDS: amLODIPine BESYLATE 5 MG TAB PO SCH (09:10)
[2021-04-11] MEDS: ASCORBIC ACID 1,000 MG TAB PO SCH (09:10)
[2021-04-11] MEDS: ASPirin 81 mg TAB PO SCH (09:10)
[2021-04-11] MEDS: DexAMETHasone SOD PHOS 10MG/1ML VIAL INJ IV SCH (09:12)
[2021-04-11] MEDS: ZINC SULFATE 220mg CAP or TAB PO SCH (09:12)
[2021-04-11] MEDS: MIDAZOLAM DRIP 50 mg/50mL 50 ML IV SCH (11:45)
[2021-04-11] MEDS: ATORVASTATIN 20 MG TAB PO SCH (21:51)
[2021-04-12] VITALS (100 sets, daily range): BP systolic 107–173; BP diastolic 42–74
[2021-04-12] MEDS: MIDAZOLAM DRIP 50 mg/50mL 50 ML IV SCH (03:07)
[2021-04-12] MEDS: fentaNYL Drip 2500mCg/250mlNS 250 ML IV SCH ×2 (03:08→13:14)
[2021-04-12 04:08] LABS: Basophils # (auto) 0 10 ^3/uL (0-0.2); Basophils % (auto) 0.1 % (0.0-2.0); Eosinophils # (auto) 0 10 ^3/uL (0-0.8); Hematocrit 29.1 % (36.0-46.0); Hemoglobin 9.7 g/dL (12.2-16.2); Lymphocytes # (auto) 0.4 10 ^3/uL (0.4-5.4); Lymphocytes % (auto) 3.4 % (10.0-50.0); Mean Corpuscular Hemoglobin 29.6 pg (28.0-32.0); Mean Corpuscular Hgb Conc. 33.3 g/dL (32.0-36.0); Mean Corpuscular Volume 88.9 fL (80.0-100.0); Monocytes # (auto) 0.4 10 ^3/uL (0-1.3); Neutrophils # (auto) 12.5 10 ^3/uL (1.6-8.6); Neutrophils % (auto) 93.5 % (37.0-80.0); Red Blood Cells 3.27 10^6/uL (4.0-5.20); Red Cell Distribution Width 13.8 % (11.8-14.3); White Blood Cell 13.4 10^3/uL (4.4-10.8)
[2021-04-12 04:23] LABS: Albumin 1.3 g/dL (3.4-5.0); BUN/Creatinine Ratio 64.6; Calcium 7.5 mg/dL (8.5-10.1); Potassium 4.2 mmol/L (3.5-5.1)
[2021-04-12 04:27] LABS: Bilirubin, Total 0.3 mg/dL (0.2-1.0)
[2021-04-12] MEDS: InsuLIN REG 1unit/0.01ml Soln (100units/ml) SC SCH ×3 (06:00→17:34)
[2021-04-12] MEDS: FREE WATER GT SCH ×3 (06:11→17:33)
[2021-04-12] MEDS: ACCU-CHEK COMFORT CURVE STRIP VI SCH ×3 (06:11→17:35)
[2021-04-12] MEDS: METOCLOPRAMIDE HCL 5MG/ml INJ 2ml VIAL IV SCH ×3 (06:11→22:26)
[2021-04-12] MEDS: INSULIN LANTUS (GLARGINE) 1 /0.01ml (100units/ml) SC SCH ×2 (06:12→22:39)
[2021-04-12] MEDS: DexAMETHasone SOD PHOS 10MG/1ML VIAL INJ IV SCH (08:50)
[2021-04-12] MEDS: AZITHROMYCIN 500MG/ 250ML 250 ML IV SCH (08:51)
[2021-04-12] MEDS: cefTRIAXone 1GM/50ML D5W 50 ML IV SCH (08:51)
[2021-04-12] MEDS: ASPirin 81 mg TAB PO SCH (08:52)
[2021-04-12] MEDS: ASCORBIC ACID 1,000 MG TAB PO SCH (08:52)
[2021-04-12] MEDS: FAMOTIDINE 20 MG TAB PO SCH ×2 (08:52→22:26)
[2021-04-12] MEDS: CLOPIDOGREL BISULFATE 75 MG TAB PO SCH (08:52)
[2021-04-12] MEDS: ENOXAPARIN SOD 40 MG/0.4 ML SYRINGE SC SCH (08:52)
[2021-04-12] MEDS: ZINC SULFATE 220mg CAP or TAB PO SCH (08:52)
[2021-04-12] MEDS: CARVEDILOL 3.125 MG TAB PO SCH ×2 (08:53→22:26)
[2021-04-12] MEDS: amLODIPine BESYLATE 5 MG TAB PO SCH (08:54)
[2021-04-12] MEDS: CHOLECALCIFEROL (VITD3) 2,000 UNIT CAP/TAB PO SCH (08:59)
[2021-04-12] MEDS: ATORVASTATIN 20 MG TAB PO SCH (22:26)
[2021-04-13] VITALS (100 sets, daily range): BP systolic 90–177; BP diastolic 34–83
[2021-04-13] MEDS: ACCU-CHEK COMFORT CURVE STRIP VI SCH ×4 (00:11→18:57)
[2021-04-13] MEDS: InsuLIN REG 1unit/0.01ml Soln (100units/ml) SC SCH ×4 (00:27→18:57)
[2021-04-13] MEDS: fentaNYL Drip 2500mCg/250mlNS 250 ML IV SCH ×3 (00:33→23:15)
[2021-04-13] MEDS: METOCLOPRAMIDE HCL 5MG/ml INJ 2ml VIAL IV SCH ×3 (06:00→22:29)
[2021-04-13] MEDS: FREE WATER GT SCH ×4 (06:00→18:57)
[2021-04-13] MEDS: INSULIN LANTUS (GLARGINE) 1 /0.01ml (100units/ml) SC SCH ×2 (06:38→22:00)
[2021-04-13] MEDS: MIDAZOLAM DRIP 50 mg/50mL 50 ML IV SCH ×2 (07:00→19:50)
[2021-04-13 07:03] LABS: Basophils # (auto) 0 10 ^3/uL (0-0.2); Basophils % (auto) 0.2 % (0.0-2.0); Eosinophils # (auto) 0 10 ^3/uL (0-0.8); Hematocrit 31.8 % (36.0-46.0); Hemoglobin 10.9 g/dL (12.2-16.2); Lymphocytes # (auto) 0.4 10 ^3/uL (0.4-5.4); Mean Corpuscular Hemoglobin 29.7 pg (28.0-32.0); Mean Corpuscular Hgb Conc. 34.3 g/dL (32.0-36.0); Mean Corpuscular Volume 86.8 fL (80.0-100.0); Monocytes # (auto) 0.6 10 ^3/uL (0-1.3); Monocytes % (auto) 3.3 % (0.0-12.0); Neutrophils # (auto) 17.2 10 ^3/uL (1.6-8.6); Neutrophils % (auto) 94.5 % (37.0-80.0); Nucleated Red Blood Cells % 0.1 %; Red Blood Cells 3.67 10^6/uL (4.0-5.20); Red Cell Distribution Width 13.7 % (11.8-14.3); White Blood Cell 18.2 10^3/uL (4.4-10.8)
[2021-04-13 08:49] LABS: Potassium 4.3 mmol/L (3.5-5.1)
[2021-04-13 08:50] LABS: BUN/Creatinine Ratio 59.3; Calcium 7.8 mg/dL (8.5-10.1)
[2021-04-13] MEDS: CARVEDILOL 3.125 MG TAB PO SCH ×2 (10:00→22:00)
[2021-04-13] MEDS: amLODIPine BESYLATE 5 MG TAB PO SCH (10:00)
[2021-04-13] MEDS: cefTRIAXone 1GM/50ML D5W 50 ML IV SCH (10:04)
[2021-04-13] MEDS: ASPirin 81 mg TAB PO SCH (10:22)
[2021-04-13] MEDS: DexAMETHasone SOD PHOS 10MG/1ML VIAL INJ IV SCH (10:22)
[2021-04-13] MEDS: ZINC SULFATE 220mg CAP or TAB PO SCH (10:22)
[2021-04-13] MEDS: FAMOTIDINE 20 MG TAB PO SCH ×2 (10:23→22:31)
[2021-04-13] MEDS: ASCORBIC ACID 1,000 MG TAB PO SCH (10:23)
[2021-04-13] MEDS: CLOPIDOGREL BISULFATE 75 MG TAB PO SCH (10:23)
[2021-04-13] MEDS: CHOLECALCIFEROL (VITD3) 2,000 UNIT CAP/TAB PO SCH (10:24)
[2021-04-13] MEDS: ENOXAPARIN SOD 40 MG/0.4 ML SYRINGE SC SCH (10:24)
[2021-04-13] MEDS: AZITHROMYCIN 500MG/ 250ML 250 ML IV SCH (11:27)
[2021-04-13] MEDS: ATORVASTATIN 20 MG TAB PO SCH (22:30)
[2021-04-14] VITALS (91 sets, daily range): BP systolic 103–182; BP diastolic 29–68
[2021-04-14] MEDS: InsuLIN REG 1unit/0.01ml Soln (100units/ml) SC SCH ×4 (06:00→18:00)
[2021-04-14] MEDS: ACCU-CHEK COMFORT CURVE STRIP VI SCH ×4 (06:00→18:01)
[2021-04-14] MEDS: FREE WATER GT SCH ×4 (06:52→17:59)
[2021-04-14] MEDS: METOCLOPRAMIDE HCL 5MG/ml INJ 2ml VIAL IV SCH ×3 (06:53→22:11)
[2021-04-14] MEDS: INSULIN LANTUS (GLARGINE) 1 /0.01ml (100units/ml) SC SCH ×2 (06:53→22:16)
[2021-04-14] MEDS: cefTRIAXone 1GM/50ML D5W 50 ML IV SCH ×3 (09:00→10:03)
[2021-04-14] MEDS: DexAMETHasone SOD PHOS 10MG/1ML VIAL INJ IV SCH (09:41)
[2021-04-14] MEDS: ASPirin 81 mg TAB PO SCH (09:42)
[2021-04-14] MEDS: CARVEDILOL 3.125 MG TAB PO SCH ×2 (09:43→22:13)
[2021-04-14] MEDS: ZINC SULFATE 220mg CAP or TAB PO SCH (09:43)
[2021-04-14] MEDS: amLODIPine BESYLATE 5 MG TAB PO SCH (09:44)
[2021-04-14] MEDS: FAMOTIDINE 20 MG TAB PO SCH ×2 (09:44→22:14)
[2021-04-14] MEDS: ASCORBIC ACID 1,000 MG TAB PO SCH (09:45)
[2021-04-14] MEDS: CHOLECALCIFEROL (VITD3) 2,000 UNIT CAP/TAB PO SCH (09:45)
[2021-04-14] MEDS: CLOPIDOGREL BISULFATE 75 MG TAB PO SCH (09:45)
[2021-04-14] MEDS: ENOXAPARIN SOD 40 MG/0.4 ML SYRINGE SC SCH (09:46)
[2021-04-14] MEDS: AZITHROMYCIN 500MG/ 250ML 250 ML IV SCH (09:47)
[2021-04-14] MEDS ORDERED: CARVEDILOL 3.125 MG TAB PO ONE (11:15)
[2021-04-14] MEDS ORDERED: ACETYLCYSTEINE 10 %(100MG/ML) SOL 4ML NEB ONE (11:15)
[2021-04-14 11:55] LABS: Basophils # (auto) 0.1 10 ^3/uL (0-0.2); Basophils % (auto) 0.4 % (0.0-2.0); Eosinophils # (auto) 0 10 ^3/uL (0-0.8); Eosinophils % (auto) 0.1 % (0.0-7.0); Hematocrit 28.3 % (36.0-46.0); Hemoglobin 9.4 g/dL (12.2-16.2); Lymphocytes # (auto) 0.3 10 ^3/uL (0.4-5.4); Mean Corpuscular Hemoglobin 29.3 pg (28.0-32.0); Mean Corpuscular Hgb Conc. 33.2 g/dL (32.0-36.0); Mean Corpuscular Volume 88.1 fL (80.0-100.0); Monocytes # (auto) 0.6 10 ^3/uL (0-1.3); Monocytes % (auto) 3.5 % (0.0-12.0); Neutrophils # (auto) 15.8 10 ^3/uL (1.6-8.6); Red Blood Cells 3.21 10^6/uL (4.0-5.20); Red Cell Distribution Width 13.6 % (11.8-14.3); White Blood Cell 16.8 10^3/uL (4.4-10.8)
[2021-04-14 12:02] LABS: Potassium 4.3 mmol/L (3.5-5.1)
[2021-04-14] MEDS: fentaNYL Drip 2500mCg/250mlNS 250 ML IV SCH (15:02)
[2021-04-14] MEDS: MIDAZOLAM DRIP 50 mg/50mL 50 ML IV SCH (16:21)
[2021-04-14] MEDS: ATORVASTATIN 20 MG TAB PO SCH (22:14)
[2021-04-15] VITALS (99 sets, daily range): BP systolic 86–189; BP diastolic 31–64
[2021-04-15] MEDS: InsuLIN REG 1unit/0.01ml Soln (100units/ml) SC SCH ×4 (02:06→18:46)
[2021-04-15] MEDS: fentaNYL Drip 2500mCg/250mlNS 250 ML IV SCH ×2 (03:15→09:47)
[2021-04-15 03:47] LABS: Basophils # (auto) 0 10 ^3/uL (0-0.2); Basophils % (auto) 0.3 % (0.0-2.0); Eosinophils # (auto) 0 10 ^3/uL (0-0.8); Hematocrit 29.8 % (36.0-46.0); Hemoglobin 9.9 g/dL (12.2-16.2); Lymphocytes # (auto) 0.7 10 ^3/uL (0.4-5.4); Lymphocytes % (auto) 4.6 % (10.0-50.0); Mean Corpuscular Hemoglobin 28.9 pg (28.0-32.0); Mean Corpuscular Hgb Conc. 33.2 g/dL (32.0-36.0); Mean Corpuscular Volume 87.3 fL (80.0-100.0); Monocytes # (auto) 0.7 10 ^3/uL (0-1.3); Monocytes % (auto) 4.4 % (0.0-12.0); Neutrophils # (auto) 13.5 10 ^3/uL (1.6-8.6); Neutrophils % (auto) 90.7 % (37.0-80.0); Red Blood Cells 3.41 10^6/uL (4.0-5.20); Red Cell Distribution Width 13.7 % (11.8-14.3); White Blood Cell 14.9 10^3/uL (4.4-10.8)
[2021-04-15 04:06] LABS: BUN/Creatinine Ratio 55.2; Calcium 7.4 mg/dL (8.5-10.1); Potassium 4.2 mmol/L (3.5-5.1)
[2021-04-15] MEDS: ACCU-CHEK COMFORT CURVE STRIP VI SCH ×4 (06:00→18:44)
[2021-04-15] MEDS: FREE WATER GT SCH ×4 (06:00→18:43)
[2021-04-15] MEDS: METOCLOPRAMIDE HCL 5MG/ml INJ 2ml VIAL IV SCH ×3 (06:50→22:15)
[2021-04-15] MEDS: INSULIN LANTUS (GLARGINE) 1 /0.01ml (100units/ml) SC SCH ×2 (07:00→22:00)
[2021-04-15] MEDS: amLODIPine BESYLATE 5 MG TAB PO SCH (09:19)
[2021-04-15] MEDS: CARVEDILOL 3.125 MG TAB PO SCH ×2 (09:20→22:00)
[2021-04-15] MEDS: ENOXAPARIN SOD 40 MG/0.4 ML SYRINGE SC SCH (10:33)
[2021-04-15] MEDS: CHOLECALCIFEROL (VITD3) 2,000 UNIT CAP/TAB PO SCH (10:33)
[2021-04-15] MEDS: ASCORBIC ACID 1,000 MG TAB PO SCH (10:34)
[2021-04-15] MEDS: DexAMETHasone SOD PHOS 10MG/1ML VIAL INJ IV SCH (10:34)
[2021-04-15] MEDS: FAMOTIDINE 20 MG TAB PO SCH ×2 (10:34→22:16)
[2021-04-15] MEDS: ZINC SULFATE 220mg CAP or TAB PO SCH (10:34)
[2021-04-15] MEDS: CLOPIDOGREL BISULFATE 75 MG TAB PO SCH (10:34)
[2021-04-15] MEDS: ASPirin 81 mg TAB PO SCH (10:34)
[2021-04-15] MEDS: MIDAZOLAM DRIP 50 mg/50mL 50 ML IV SCH (15:04)
[2021-04-15] MEDS: ATORVASTATIN 20 MG TAB PO SCH (22:16)
[2021-04-16] VITALS (98 sets, daily range): BP systolic 68–186; BP diastolic 5–70
[2021-04-16] MEDS: FREE WATER GT SCH ×3 (00:29→12:00)
[2021-04-16] MEDS: ACCU-CHEK COMFORT CURVE STRIP VI SCH ×4 (00:29→18:56)
[2021-04-16 03:54] LABS: Basophils # (auto) 0.1 10 ^3/uL (0-0.2); Basophils % (auto) 0.3 % (0.0-2.0); Eosinophils # (auto) 0 10 ^3/uL (0-0.8); Hematocrit 30.6 % (36.0-46.0); Hemoglobin 10.1 g/dL (12.2-16.2); Lymphocytes # (auto) 0.4 10 ^3/uL (0.4-5.4); Lymphocytes % (auto) 2.2 % (10.0-50.0); Mean Corpuscular Hemoglobin 28.5 pg (28.0-32.0); Mean Corpuscular Hgb Conc. 33.1 g/dL (32.0-36.0); Mean Corpuscular Volume 86.2 fL (80.0-100.0); Monocytes # (auto) 0.5 10 ^3/uL (0-1.3); Monocytes % (auto) 2.7 % (0.0-12.0); Neutrophils # (auto) 17.6 10 ^3/uL (1.6-8.6); Neutrophils % (auto) 94.8 % (37.0-80.0); Red Blood Cells 3.55 10^6/uL (4.0-5.20); Red Cell Distribution Width 13.7 % (11.8-14.3); White Blood Cell 18.6 10^3/uL (4.4-10.8)
[2021-04-16 04:10] LABS: BUN/Creatinine Ratio 56.7; Calcium 7.3 mg/dL (8.5-10.1); Potassium 4.3 mmol/L (3.5-5.1)
[2021-04-16] MEDS: InsuLIN REG 1unit/0.01ml Soln (100units/ml) SC SCH ×4 (05:59→19:00)
[2021-04-16] MEDS: INSULIN LANTUS (GLARGINE) 1 /0.01ml (100units/ml) SC SCH ×2 (05:59→23:08)
[2021-04-16] MEDS: METOCLOPRAMIDE HCL 5MG/ml INJ 2ml VIAL IV SCH ×3 (05:59→22:00)
[2021-04-16] MEDS: DexAMETHasone SOD PHOS 10MG/1ML VIAL INJ IV SCH (09:44)
[2021-04-16] MEDS: MIDAZOLAM DRIP 50 mg/50mL 50 ML IV SCH (09:54)
[2021-04-16] MEDS: fentaNYL Drip 2500mCg/250mlNS 250 ML IV SCH (09:56)
[2021-04-16] MEDS: CARVEDILOL 3.125 MG TAB PO SCH ×2 (10:00→22:00)
[2021-04-16] MEDS: ZINC SULFATE 220mg CAP or TAB PO SCH (10:00)
[2021-04-16] MEDS: ASCORBIC ACID 1,000 MG TAB PO SCH (10:00)
[2021-04-16] MEDS: ASPirin 81 mg TAB PO SCH (10:00)
[2021-04-16] MEDS: CLOPIDOGREL BISULFATE 75 MG TAB PO SCH (10:00)
[2021-04-16] MEDS: amLODIPine BESYLATE 5 MG TAB PO SCH (10:00)
[2021-04-16] MEDS: ENOXAPARIN SOD 40 MG/0.4 ML SYRINGE SC SCH (10:00)
[2021-04-16] MEDS: CHOLECALCIFEROL (VITD3) 2,000 UNIT CAP/TAB PO SCH (10:00)
[2021-04-16] MEDS: FAMOTIDINE 20 MG TAB PO SCH (10:00)
[2021-04-16] MEDS ORDERED: SODIUM CHLORIDE 0.9% 1,000 ML IV ONE (10:30)
[2021-04-16] MEDS: PHENYLEPHRINE IV 250 ML IV SCH ×2 (10:30→18:50)
[2021-04-16] MEDS ORDERED: PANTOPRAZOLE 40 MG/10 ML VIAL INJ IV ONE (10:30)
[2021-04-16] MEDS: NOREPINEPHRINE 8 MG/250ML KIT 250 ML IV SCH ×2 (10:30→14:22)
[2021-04-16 11:30] LABS: Basophils # (auto) 0 10 ^3/uL (0-0.2); Basophils % (auto) 0.2 % (0.0-2.0); Eosinophils # (auto) 0 10 ^3/uL (0-0.8); Eosinophils % (auto) 0.2 % (0.0-7.0); Hematocrit 31.3 % (36.0-46.0); Hemoglobin 10.3 g/dL (12.2-16.2); Lymphocytes # (auto) 0.7 10 ^3/uL (0.4-5.4); Lymphocytes % (auto) 3.4 % (10.0-50.0); Mean Corpuscular Hemoglobin 28.9 pg (28.0-32.0); Mean Corpuscular Volume 87.3 fL (80.0-100.0); Monocytes # (auto) 0.8 10 ^3/uL (0-1.3); Monocytes % (auto) 4.1 % (0.0-12.0); Neutrophils # (auto) 18.3 10 ^3/uL (1.6-8.6); Neutrophils % (auto) 92.1 % (37.0-80.0); Red Blood Cells 3.58 10^6/uL (4.0-5.20); Red Cell Distribution Width 13.6 % (11.8-14.3); White Blood Cell 19.9 10^3/uL (4.4-10.8)
[2021-04-16 11:42] LABS: Partial Thromboplastin Time 33.7 sec (23.6-33.0)
[2021-04-16] MEDS ORDERED: PHYTONADIONE (VIT K)10 MG/ML 1ML VIAL IV ONE (12:00)
[2021-04-16] MEDS: ATORVASTATIN 20 MG TAB PO SCH (23:07)
[2021-04-16] MEDS: PANTOPRAZOLE 40 MG/10 ML VIAL INJ IV SCH (23:07)
[2021-04-17] VITALS (53 sets, daily range): BP systolic 79–134; BP diastolic 31–63
[2021-04-17] MEDS: InsuLIN REG 1unit/0.01ml Soln (100units/ml) SC SCH ×3 (00:10→12:00)
[2021-04-17] MEDS: ACCU-CHEK COMFORT CURVE STRIP VI SCH ×3 (00:10→12:00)
[2021-04-17] MEDS: PHENYLEPHRINE IV 250 ML IV SCH (03:10)
[2021-04-17] MEDS: METOCLOPRAMIDE HCL 5MG/ml INJ 2ml VIAL IV SCH (06:00)
[2021-04-17] MEDS: INSULIN LANTUS (GLARGINE) 1 /0.01ml (100units/ml) SC SCH (06:18)
[2021-04-17] MEDS: PANTOPRAZOLE 40 MG/10 ML VIAL INJ IV SCH (09:01)
[2021-04-17] MEDS: CARVEDILOL 3.125 MG TAB PO SCH (09:29)
[2021-04-17] MEDS: amLODIPine BESYLATE 5 MG TAB PO SCH (09:31)
[2021-04-17] MEDS: fentaNYL Drip 2500mCg/250mlNS 250 ML IV SCH (12:00)
== END 2021-04-17 14:30 | DRG 870 ==
LOC: EDBD 12:15 → ER 12:15 → TELE 16:31 → ICU WEST 04-08 22:35
PROVIDERS: ADMIT Family Medicine; ATTEND Internal Medicine
PROC: XW033E5 Introduction of Remdesivir Anti-infective into Peripheral Vein, Percutaneous Approach, New Technology Group 5 (ICD-10-PCS; 2021-03-31)
PROC: 5A1955Z Respiratory Ventilation, Greater than 96 Consecutive Hours (ICD-10-PCS; principal; 2021-04-01)
PROC: 0BH17EZ Insertion of Endotracheal Airway into Trachea, Via Natural or Artificial Opening (ICD-10-PCS; 2021-04-01)
PROC: 05HF33Z Insertion of Infusion Device into Left Cephalic Vein, Percutaneous Approach (ICD-10-PCS; 2021-04-05)
PROC: B54NZZA Ultrasonography of Left Upper Extremity Veins, Guidance (ICD-10-PCS; 2021-04-05)
PROC: 30233K1 Transfusion of Nonautologous Frozen Plasma into Peripheral Vein, Percutaneous Approach (ICD-10-PCS; 2021-04-16)
DX: A41.89 Other specified sepsis (principal); U07.1 COVID-19; J12.82 Pneumonia due to coronavirus disease 2019; I21.4 Non-ST elevation (NSTEMI) myocardial infarction; J96.01 Acute respiratory failure with hypoxia; G92.8 Other toxic encephalopathy; G93.1 Anoxic brain damage, not elsewhere classified; E88.09 Other disorders of plasma-protein metabolism, not elsewhere classified; D89.839 Cytokine release syndrome, grade unspecified; I16.0 Hypertensive urgency; I10 Essential (primary) hypertension; E11.65 Type 2 diabetes mellitus with hyperglycemia
CPT/HCPCS: 36415; 36600; 70450; 71045; 80048; 80053; 81001; 82728; 82805; 82962; 83036; 83605; 83615; 83735; 83880; 84443; 84484; 85025; 85379; 85610; 85730; 86141; 86850; 86900; 86901; 87040; 87070; 87081; 87205; 87426; 93005; 93306; 93970; 94002; 94003; 94640; 95819; 96360; 99291; C9113; G0378; J0696; J1100; J1815; J2250; J2405; J3430; J7060